=== PATIENT | male | born 1980 | race Caucasian/White ===

== ENCOUNTER 2020-09-20 19:13 | Emergency (ER) | payer SELFPAY ==
[2020-09-20 19:24] VITALS: BP 138/75; PULSE 76; RESP 18; TEMP 36.6; O2SAT 97; BMI 35.6
[2020-09-20 21:00] VITALS: RESP 22
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
[2020-09-20] MEDS: HYDROcodone-acetaminophen 7.5-325 mg Tablet 1 TAB PO (21:28)
[2020-09-20] MEDS: ketorolac 30 mg/mL INJ IM (21:28)
[2020-09-20 22:53] VITALS: RESP 20
== END 2020-09-20 22:54 | disposition home or self-care (01) ==
PROVIDERS: Emergency Provider Nurse Practitioner Family
DX: M54.16 Radiculopathy, lumbar region (principal)
CPT/HCPCS: 72100; 96372; 99283; J1885

== ENCOUNTER 2020-12-04 10:29 | Emergency (ER) | payer SELFPAY ==
[2020-12-04 10:37] VITALS: BP 139/99; PULSE 76; RESP 18; O2SAT 94; BMI 36.2
--- NOTE | 2020-12-04 11:00 | ECG_ITS ---
[facility] Test Date: 2020-12-04 Pat Name: Jose Cantu Department: Room: Gender: Male Lan Administrator: : 1980 Requested By: Yomi Guaman Order Number: [id number] [place] MD: Marcie Coker M.D. Measurements Intervals [place] Rate: 70 P: 17 DE: 166 QRS: -25 QRSD: 95 T: 16 QT: 377 QTc: 409 Interpretive Statements SINUS RHYTHM BORDERLINE LEFT AXIS DEVIATION [QRS AXIS < -20] LOW QRS VOLTAGE IN PRECORDIAL LEADS [QRS DEFLECTION < 1.0 mV IN CHEST LEADS] No previous ECG available for comparison Electronically Signed On 12-05-2020 14:17:28 CDT by Marcie Coker M.D. [id number]
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
--- NOTE | 2020-12-04 11:19 | ED_ITS ---
HPI - Back Pain/Injury General: Chief Complaint: Back Pain/Injury Stated Complaint: back and hip injury, passing blood Time Seen by Provider: 12/04/20 10:36 History of Present Illness: HPI Narrative: The patient is a 40-year-old male who comes to the and lower back pain since yesterday evening. He says he was working on a vehicle yesterday afternoon and a mackey draft roller picker flipped over and he got pinned between the mackey draft roller picker and the side of a flatbed flower buncher or picker for 20 minutes. He says he has severe pain in those areas. Yesterday evening he had an episode of bright red blood in his stool. Severity: severe Quality: sharp Relieving factors: none Associated symptoms: Reports abdominal pain; Deny difficulty walking, fatigue, nausea, urinary urgency or vomiting Review of Systems General: Reports: 10 or more systems reviewed and unremarkable except in HPI and below Const: Denies: fatigue Eyes: Denies: change in vision, blurry vision or eye redness ENMT: Denies: throat pain, swelling of lips/tongue, ear or mastoid pain or na ramya congestion Card: Denies: chest pain, palpitations, irregular heart rhythm, edema, dyspnea on exertion or orthopnea Resp: Denies: dyspnea, productive cough or non-productive cough GI: Reports: abdominal pain and hematochezia; Denies: nausea, vomiting or diarrhea : Denies: flank pain, urinary frequency or urinary urgency Musc: Reports: back pain and joint pain; Denies: neck pain, extremity pain, joint redness, limited range of motion or muscle weakness Skin/Breast: Denies: rash, pruritus, erythema, skin pain or skin tenderness Neuro: Denies: headache(s), numbness in extremities, weakness in extremities, sensory changes, difficulty walking, dizziness, confusion or Slurred speech present Psych: Denies: anxiety or depression Endo: Denies: polyuria All/Imm: Denies: urticaria, throat swelling or tongue swelling Physical Exam Const: COMMON NORMALS: no acute distress, average body habitus, patient oriented x3, no limitations, healthy appearing, alert and well nourished GENE RAL APPEARANCE: cooperative, comfortable, well kempt and well developed O RIENTATION/CONSCIOUSNESS: Yes awake, Yes oriented to person, Yes oriented to place and Yes oriented to time HENMT: COMMON NORMALS: normocephalic, external ears normal and Normal external nose present HEAD & SCALP: normal to inspection and normocephalic NOSE: Normal external nose present EXTERNAL EAR: Yes external ears normal MOUTH: Normal oral and palatal mucosa present THROAT: posterior oropharynx normal Eye: COMMON NORMALS: Equal, round and reactive pupils present and EOMs intact bilaterally GENERAL EYE: appearance normal, both eyes and all related structures PUPIL: Yes Equal, round and reactive pupils present Neck/C-Spine: COMMON NORMALS: full ROM, no lymphadenopathy, no meningeal signs and no JVD GENERAL: Yes normal visual inspection Lymph: LYMPHATIC: no lymphadenopathy noted Chest: COMMONS NORMALS: normal inspection of the chest and normal palpation of entire chest wall Resp: COMMON NORMALS: normal respiratory effort, No retractions, No use of accessory muscles, clear to auscultation bilaterally and percussion normal EFFORT & INSPECTION: Yes able to speak in complete sentences AUSCULTATION: clear to auscultation bilaterally PERCUSSION: percussion normal Cardio: COMMON NORMALS: no JVD, regular rate, regular rhythm, S1 normal heart sound present, S2 normal heart sound present and Peripheral pulses 2+ throughout RATE: regular rate RHYTHM: regular rhythm HEART SOUNDS: S1 normal heart sound present and S2 normal heart sound present PERIPHERAL PULSES: Peripheral pulses 2+ throughout GI: COMMON NORMALS: Normal to inspection, nondistended, normoactive bowel sounds present, Soft to palpation and no masses INSPECTION: Yes normal to inspection PALPATION: Yes Soft to palpation GI image (male): 1. Generalized tenderness to abdomen. Also lower left ribs appear tender. Back/Pelvis: BACK IMAGE (MALE): 1. Generalized lower back tenderness generalized lower back tenderness Extremity: COMMON NORMALS: normal to inspection, full ROM, capillary refill normal, no joint enlargement and no pedal edema GENERAL: Yes normal exam except as noted Neuro: COMMON NORMALS: patient oriented x3, CN's II-XII intact bilaterally, moves all extremities, no focal motor deficits, no sensory deficits noted and ga it normal SENSORIUM/ORIENTATION: Yes alert, Yes oriented to person, Yes oriented to place and Yes oriented to time MENINGEAL SIGNS: Yes no meningeal signs Psych: COMMON NORMALS: mental status grossly normal, Normal thought process present, cooperative, normal affect and speech normal APPEARANCE: Yes well kempt ATTITUDE: Yes calm SPEECH: Yes normal speech THOUGHT PROCESS: Normal thought process present Skin: COMMON NORMALS: no rashes or lesions noted GENERAL SKIN EXAM: no rashes or lesions noted Course Vital Signs: Vital signs: Vital Signs Pulse Rate 76 12/04/20 10:37 Respiratory Rate 18 12/04/20 10:37 Blood Pressure 139/99 12/04/20 10:37 Pulse Oximetry 94 12/04/20 10:37 MDM - Back Pain/Injury MDM Narrative: Medical decision making narrative: The patient came to the ER after the patient came to the ER after he he was pinned yesterday for 20 minutes between a mackey draft roller picker at a truck. CT with IV contrast showed no acute injuries. He said he had blood in his stool yesterday as well. Normal bowel movement today. I asked to check him for occult blood in his stool and he refused. I discussed the possibility of injury to his bowel and blood in his stool that he cannot see. He understands the risks and benefits and decides to decline the test. He continues to complain of pain but there are no fractures or significant injuries seen on CT. Likely soft tissue musculoskeletal pain. Will be discharged with hydrocodone and will return with worsening pain. Given a couple days off work to recover from the injury. Primary care physician in a couple days. Lab Data: Labs: Lab Results 12/04/20 12/04/20 12/04/20 Range/Units 11:32 11:32 12:50 WBC 6.2 (4.0-10.0) 10^3/ uL RBC 6.11 H (4.1-5.3) 10^6/u L Hgb 16.1 (11.7-16.6) g/dL Hct 49.4 (42.0-52.0) % MCV 80.9 (80-94) fL MCH 26.4 L (28.0-34.0) pg MCHC 32.6 (30.0-36.0) g/dL RDW 13.2 (12.1-15.1) % Plt Count 231 (130-400) 10^3/c mm MPV 9.7 (7.4-10.4) fL Neut % (Auto) 65.2 % Lymph % (Auto) 22.9 % [place] % (Auto) 9.7 % Eos % (Auto) 1.1 % Baso % (Auto) 0.8 % Neut # (Auto) 4.04 (1.8-7.7) 10^3/u L Lymph # (Auto) 1.4 (0.8-4.8) 10^3/u L [place] # (Auto) 0.6 (0.2-0.9) 10^3/u L Eos # (Auto) 0.1 (0.0-0.8) 10^3/u L Baso # (Auto) 0.1 (0.0-0.1) 10^3/u L Nucleated RBC % (a uto) 0 % Nucleated RBCs # 0.0 /100WBC Sodium 137 (136-145) mmol/L Potassium 4.3 (3.5-5.1) mmol/L Chloride 103 (98-107) mmol/L Carbon Dioxide 27 (22-29) mmol/L Anion Gap 11.3 (5-19) BUN 12 (6-20) mg/dL Creatinine 0.8 (0.7-1.2) mg/dL GFR Calculation 106.0 (90-130) mL/min Glucose 95 (65-115) mg/dL Calculated Osmolal ity 284 L (285-295) mOsm/k g Calcium 8.7 (8.5-10.5) mg/dL Total Bilirubin 0.3 (0.15-1.2) mg/dL AST 26 (0-40) U/L ALT 26 (0-41) U/L Alkaline Phosphata se 100 (40-130) IU/L Creatine Kinase 537 H* (39-308) U/L Total Protein 7.0 (6.6-8.7) g/dL Albumin 4.1 (3.5-5.2) g/dL Globulin 2.9 (1.3-4.6) g/dL Urine Color Yellow (Yellow) Urine Appearance Clear (CLEAR) Urine pH 5 (5-7) Ur Specific Gravit y 1.020 (1.005-1.030) Urine Protein Neg (Negative) Urine Glucose (UA) Norm (Normal) Urine Ketones Negative (Negative) Urine Blood Neg (Negative) Urine Nitrate Negative (Negative) Urine Bilirubin Neg (Negative) Urine Urobilinogen 1 H (Negative) mg/dL Ur Leukocyte Tiffanie ase Negative (Negative) Discharge Plan Discharge Patient Disposition: Home Clinical Impression: Strain of lumbar region, Contusion Condition: Stable Prescriptions: New hydrocodone-acetaminophen 5-325 mg tablet 1 tab PO Q6H PRN (Reason: pain) Qty: 12 RF: 0 No Action ibuprofen 200 mg Tablet 400 mg PO PRN RF: 0 Discharge Orders: Discharge ED (Routine); Ordered 12/04/20 Ordered By: Yomi Guaman Discharge Diet: Advance as tolerated Discharge Activity: Limit activity as instructed Patient Instructions: Crush Injury, Opioid Safety Activity Restrictions/Additional Instructions: You had a crush injury yesterday where you were pinned between a mackey draft roller picker and a truck. We have done a CAT scan and found no acute injuries. The pain is likely from your muscles and soft tissues being pinned and bruised. Please return to the ER at anytime with worsening symptoms. Take the hydrocodone for severe pain only and do not mix it with drugs, alcohol, nor operate machinery while using this medication. Follow-up with your primary care physician in a couple days to monitor improvement of your symptoms. Drink lots of fluids. Stand Alone Forms: Work/School Release Coding Level of Care Code ED Clinical Project Assistant for Scott [facility] Exam Comprehensive
[2020-12-04] MEDS: HYDROmorphone 1 mg/mL INJ 1 mL 0.5 MG IVP ×2 (11:30→13:30)
[2020-12-04] MEDS: sodium chloride 0.9% 1,000 ML 999 ML IV (11:31)
[2020-12-04 11:42] LABS: Basophils # 0.1 10^3/uL (0.0-0.1); Basophils % 0.8 %; Eosinophils # 0.1 10^3/uL (0.0-0.8); Eosinophils % 1.1 %; Hematocrit 49.4 % (42.0-52.0); Hemoglobin 16.1 g/dL (11.7-16.6); Lymphocytes # 1.4 10^3/uL (0.8-4.8); Lymphocytes % 22.9 %; Mean Corpuscular HGB Conc 32.6 g/dL (30.0-36.0); Mean Corpuscular Hemoglobin 26.4 pg (28.0-34.0); Mean Corpuscular Volume 80.9 fL (80-94); Mean Platelet Volume 9.7 fL (7.4-10.4); Monocytes # 0.6 10^3/uL (0.2-0.9); Monocytes % 9.7 %; Neutrophils # 4.04 10^3/uL (1.8-7.7); Neutrophils % 65.2 %; Nucleated Red Blood Cells % 0 %; Platelet Count 231 10^3/cmm (130-400); Red Blood Count 6.11 10^6/uL (4.1-5.3); Red Cell Distribution Width 13.2 % (12.1-15.1); White Blood Count 6.2 10^3/uL (4.0-10.0)
[2020-12-04 11:56] LABS: Alanine Aminotransferase 26 U/L (0-41); Albumin Level 4.1 g/dL (3.5-5.2); Alkaline Phosphatase 100 IU/L (40-130); Anion Gap 11.3 (5-19); Aspartate Amino Transferase 26 U/L (0-40); Blood Urea Nitrogen 12 mg/dL (6-20); Calcium 8.7 mg/dL (8.5-10.5); Carbon Dioxide 27 mmol/L (22-29); Chloride 103 mmol/L (98-107); Globulin 2.9 g/dL (1.3-4.6); Glucose 95 mg/dL (65-115); Osmolality Calculated 284 mOsm/kg (285-295); Potassium 4.3 mmol/L (3.5-5.1); Sodium 137 mmol/L (136-145); Total Bilirubin 0.3 mg/dL (0.15-1.2)
[2020-12-04 11:58] LABS: Creatine Phosphokinase 537 U/L (39-308)
[2020-12-04 13:02] LABS: Add Urine Microscopic? NO; Charge for UA Resulting for Rev
[2020-12-04 13:03] LABS: Blood Urine Neg (Negative); Glucose Urine UA Norm (Normal); Ketones Urine Negative (Negative); Nitrate Urine Negative (Negative); Protein Urine Neg (Negative); Urine Appearance Clear (CLEAR); Urine Color Yellow (Yellow); Urobilinogen Urine 1 mg/dL (Negative); pH Urine 5 (5-7)
[2020-12-04 13:04] LABS: Bilirubin Urine Neg (Negative); Leukocyte Esterase Urine Negative (Negative)
--- NOTE | 2020-12-04 13:15 | CT_ITS ---
WS: [id number] CT ABDOMEN AND PELVIS WITH CONTRAST HISTORY: crush injury TECHNIQUE: Imaging performed of the abdomen and pelvis with IV contrast. Single phase imaging of the abdomen. Coronal and sagittal reformats are submitted. All CT scans at [facility] use at least one of these dose optimization techniques: automated exposure control; mA and/or kV adjustment per patient size (includes targeted exams where dose is matched to clinical indication); or iterativ e reconstruction. IV CONTRAST: Omnipaque 300; 95 mL IV. Oral contrast: No DLP: 2105.26 mGy.cm COMPARISON: Study earlier the same day and 08/30/2012 Lower thorax: Lung bases are clear. Heart is normal size. Small hiatal hernia. Liver/biliary system: Normal size with no intrahepatic dilatation. Gallbladder: Contracted gallbladder with stones. No adjacent inflammation. Pancreas: Normal size pancreas and pancreatic duct. No adjacent inflammation. Spleen: Mild splenomegaly. Adrenal glands: Normal. Right kidney: Normal size kidney. There is a low-attenuation masses within the RIGHT kidney. The larg est in the lower pole is a cyst measuring 6.0 cm. Additional probable cortical cysts in the upper sandra e measuring 13 mm. No obstruction or parenchymal injury. Left kidney: Cortical hypodensities are too small to characterize. Aorta: Normal. Lymphadenopathy: None. Free fluid: None. GI tract: No GI tract injury. No obstructive pattern. No obstructive pattern. Abdominal wall: Small umbilical hernia contains fat only. No subcutaneous edema or hematoma. Pelvis: No free fluid or adenopathy within the pelvis. Bones: No lumbar spine or pelvic fracture. Slightly displaced LEFT L1 transverse process fracture sim ilar to the study from 2011. There is mild bilateral concavity involving the ribs but these findings were also present on the study from 2011. CT/CT abdomen pelvis w con* [id number] IMPRESSION: 1. No acute abdominal or pelvic abnormalities. 2. Mild bilateral rib deformity in the lower thorax similar to 2012. 3. No soft tissue injury. Mesenteric and GI tract injuries may be difficult to visualize. Notified Yomi Guaman MD at 12/04/2020 2:27 PM.
[2020-12-04] MEDS: iohexol 300 mg/mL 100 mL Btl IV (14:05)
[2020-12-04 15:31] VITALS: PULSE 85; RESP 15; O2SAT 98
== END 2020-12-04 15:31 | disposition home or self-care (01) ==
PROVIDERS: Emergency Provider Family Medicine
DX: S39.012A Strain of muscle, fascia and tendon of lower back, initial encounter (principal); T14.8XXA Other injury of unspecified body region, initial encounter; W31.89XA Contact with other specified machinery, initial encounter
CPT/HCPCS: 71250; 74176; 74177; 80053; 81003; 82550; 85025; 93005; 96361; 96374; 96376; 99284; J1170; J7030; Q9967

== ENCOUNTER 2021-02-05 12:43 | Inpatient (IN) | payer SELFPAY ==
[2021-02-05 12:52] VITALS: BP 122/74; PULSE 72; RESP 20; TEMP 36.5; O2SAT 96; BMI 37.5
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
[2021-02-05 13:51] LABS: Basophils % 0.6 %; Eosinophils # 0.1 10^3/uL (0.0-0.8); Eosinophils % 2.1 %; Hematocrit 44.3 % (42.0-52.0); Hemoglobin 14.4 g/dL (11.7-16.6); Lymphocytes # 1.2 10^3/uL (0.8-4.8); Lymphocytes % 22.3 %; Mean Corpuscular HGB Conc 32.5 g/dL (30.0-36.0); Mean Corpuscular Hemoglobin 26.8 pg (28.0-34.0); Mean Corpuscular Volume 82.5 fl (80-94); Mean Platelet Volume 9.5 fL (7.4-10.4); Monocytes # 0.6 10^3/uL (0.2-0.9); Monocytes % 12.4 %; Neutrophils # 3.21 10^3/uL (1.8-7.7); Neutrophils % 62.4 %; Nucleated Red Blood Cells % 0 %; Platelet Count 198 10^3/cmm (130-400); Red Blood Count 5.37 10^6/uL (4.1-5.3); Red Cell Distribution Width 13.2 % (12.1-15.1); White Blood Count 5.2 10^3/uL (4.0-10.0)
[2021-02-05] MEDS: ibuprofen 800 mg tablet PO (13:51)
[2021-02-05] MEDS: LORazepam 2 mg Tablet PO (13:52)
[2021-02-05 14:10] LABS: Alanine Aminotransferase 29 U/L (0-41); Albumin Level 3.8 g/dL (3.5-5.2); Alkaline Phosphatase 97 IU/L (40-130); Anion Gap 13.4 (5-19); Aspartate Amino Transferase 37 U/L (0-40); Blood Urea Nitrogen 12 mg/dL (6-20); Calcium 8.4 mg/dL (8.5-10.5); Carbon Dioxide 25 mmol/L (22-29); Chloride 105 mmol/L (98-107); Globulin 2.4 g/dL (1.3-4.6); Glomerular Filtration Rate 92.5 mL/min (90-130); Glucose 129 mg/dL (65-115); Osmolality Calculated 289 mOsm/kg (285-295); Potassium 4.4 mmol/L (3.5-5.1); Sodium 139 mmol/L (136-145); Total Bilirubin 0.3 mg/dL (0.15-1.2); Total Protein 6.2 g/dL (6.6-8.7)
[2021-02-05 14:12] LABS: Acetaminophen < 5.0 ug/mL (10-30); Alcohol Level < 10 mg/dL (0-10); Salicylate < 0.3 mg/dL (3-10)
[2021-02-05 14:57] LABS: Add Urine Microscopic? NO; Charge for UA Resulting for Rev
[2021-02-05 15:00] LABS: Bilirubin Urine 1+ (Negative); Blood Urine Neg (Negative); Glucose Urine UA Norm (Normal); Ketones Urine Negative (Negative); Nitrate Urine Negative (Negative); Protein Urine Neg (Negative); Specific Gravity, Urine 1.025 (1.005-1.030); Urine Appearance Clear (CLEAR); Urine Color Yellow (Yellow); pH Urine 5 (5-7)
[2021-02-05 15:01] LABS: Leukocyte Esterase Urine Negative (Negative); Urobilinogen Urine 8 mg/dL (Negative)
[2021-02-05 15:09] LABS: Amphetamines Screen Urine Positive (Negative); Barbiturates Screen Urine Negative (Negative); Benzodiazepines Screen Urine Negative (Negative); Cocaine Screen Urine Negative (Negative); Opiate Screen Urine Negative (Negative); PCP Screen Urine Negative (Negative); THC Screen Urine Negative (Negative)
[2021-02-05 15:22] VITALS: BP 135/84; PULSE 66; RESP 18; TEMP 36.5; O2SAT 96
--- NOTE | 2021-02-05 17:56 | PC.NURSE ---
REPORT CALLED TO LUIS ENRIQUE IN NPU
[2021-02-05 22:00] VITALS: BP 130/63; PULSE 69; RESP 17; TEMP 36.8; O2SAT 97
[2021-02-06 06:00] VITALS: BP 145/76; PULSE 50; RESP 17; TEMP 36.7; O2SAT 95
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
[2021-02-06] MEDS: nicotine 21 mg Patch 1 PATCH TRANSDERMA (10:33)
[2021-02-06 14:00] VITALS: BP 150/93; PULSE 72; RESP 14; TEMP 36.5; O2SAT 95
[2021-02-06] MEDS: acetaminophen 325 mg Tablet 650 MG PO ×2 (15:12→21:32)
[2021-02-06] MEDS: trazodone 50 mg Tablet PO (20:53)
[2021-02-06 22:00] VITALS: BP 117/64; PULSE 61; RESP 17; TEMP 36.8; O2SAT 99
[2021-02-07 06:00] VITALS: BP 149/70; PULSE 72; RESP 17; TEMP 36.4; O2SAT 96
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
[2021-02-07 12:10] VITALS: BP 149/70; PULSE 72; RESP 17; TEMP 36.4; O2SAT 96
== END 2021-02-07 12:18 | disposition home or self-care (01) | DRG 881 ==
LOC: ER 15:30 → NP 17:33
PROVIDERS: Admitting Provider Psychiatry & Neurology Psychiatry; Emergency Provider Family Medicine; Visit Provider Psychiatry & Neurology Psychiatry
DX: F43.21 Adjustment disorder with depressed mood (principal); R45.851 Suicidal ideations; Z63.4 Disappearance and death of family member; M19.90 Unspecified osteoarthritis, unspecified site; E66.01 Morbid (severe) obesity due to excess calories; Z68.37 Body mass index [BMI] 37.0-37.9, adult; Z76.5 Malingerer [conscious simulation]; Z91.018 Allergy to other foods
CPT/HCPCS: 80053; 80306; 80307; 81003; 85025; 99285